=== PATIENT | female | born 1990 | race Asian ===

== ENCOUNTER 2019-12-04 12:14 | Emergency (ER) | payer SELFPAY ==
[~2019-12-04] VITALS: Ht 165.1 cm; Wt 63.5 kg
--- NOTE | 2019-12-04 12:14 | NUR ---
ED Nurse Note: Ptgot triaged at 1206, provided a sitter for safety.
--- NOTE | 2019-12-04 12:14 | NUR ---
ED Nurse Note: patient placed in room 7, DR Duarte at bedside, as well as [employer].
[2019-12-04] MEDS ORDERED: Tetanus/Diptheria/Pertussis IM ONE ×2 (12:15→12:52)
--- NOTE | 2019-12-04 12:15 | NUR ---
ED Nurse Note: patient changed into a hospital gown, all of her belongings placed in a locker beneath the sink in utility room. 1 scissor and 1 knife was given to the security.
--- NOTE | 2019-12-04 12:16 | NUR ---
HAND-OFF: Report given to Krupa HANEY. endorsed all plan of care to Krupa HANEY.
--- NOTE | 2019-12-04 12:27 | Emergency Room Report ---
History of Present Illness General Chief Complaint: Behavioral Complaint Source: EMS (Sadiq Duarte MD) Present Illness HPI Disclaimer: Please note that this report is being documented using DRAGON technology. This can lead to erroneous entry secondary to incorrect interpretation by the dictating instrument. HPI: 29-year-old female with unknown medical history presents by EMS with [employer] on a 5150 hold for suicidal behavior. Patient was brought in from the streets. She was found covered in blood behaving erratically. Reportedly she had pieces of glass that she was trying to use to cut her wrists. The patient is not providing any history at this time. She is withdrawn and only stating that "need to get out of here." She is pulling out her hair while I speak with her. Unknown past medical history or current medications. PMH: Unknown PSH: Unknown Allergies: Unknown Social Hx: Unknown (Sadiq Duarte MD) Allergies: Coded Allergies: No Known Allergies (Unverified , 12/04/19) Patient History Now: No (Sadiq Duarte MD) Nursing Documentation-PMH Past Medical History: No History, Except For History Of Psychiatric Problem: Yes (Sadiq Duarte MD) Review of Systems All Other Systems: limited - Unable to obtain from patient (Sadiq Duarte MD) Physical Exam Vital Signs Date Time Temp Pulse Resp B/P (MAP) Pulse Ox O2 Delivery O2 Flow Rate FiO2 12/04/19 12:06 110 17 142/42 (75) 97 General: Awake, emotional, tearful HEENT: Normocephalic. 1 cm linear superficial laceration just involving the dermis over the left upper forehead. Hemostatic. EOMI. PERRLA. Moist mucous membranes. Cardiovascular: Tachycardic. S1 and S2 normal. No murmur appreciated Resp: Normal work of breathing. No cough, wheezing or crackles appreciated Abdomen: Abdomen is soft, nondistended. Nontender Skin: 1 cm linear superficial laceration just involving the dermis over the left upper forehead. Hemostatic. 2 cm superficial laceration extending through the dermis over the right wrist. Hemostatic. No debris. Multiple abrasions across the forehead, extremities appear to be scratch jacobs MSK: Normal tone and bulk. Moving all extremities. No obvious deformity. Neuro: Awake, agitated, combative with staff. Restrained to rney. (Sadiq Duarte MD) Procedures Laceration/Wound Repair Laceration/Wound Repair : Consent: Emergent Wound Location: face - 1 cm, upper extremity - 2 cm right wrist Wound's Depth, Shape: superficial, linear Wound Explored: clean Wound Debrided: None Suture Size/Type: 4:0, proline Number of Sutures: 3 Sterile Dressing Applied?: Yes Patient Tolerated: Well Complications: None (Sadiq Duarte MD) Medical Decision Making Restraint Reassesment I, Sadiq Duarte MD, have personally evaluated this patient. Laboratory tests have been reviewed and addressed accordingly. The patient is deemed to present a danger to themselves and/or others. This is based on the exam, history ( provided by patient, EMS/[employer] and/or family) and observed or reported behavior. Attempts for non-invasive measures have been considered and/or attempted, however, have been futile. It is in the best interest of the nursing staff, the patient, and others involved in this patient's care that behavioral restraints be applied. Patient evaluation reveals the following: Delirium, combativeness, danger to staff (Sadiq Duarte MD) Diagnostic Impression: Primary Impression: Suicidal behavior Additional Impressions: Face lacerations Multiple lacerations ER Course 21-year-old female presents for suicidal ideation. She has been placed on 5150 hold by [employer]. We will start broad labs including toxicologic studies. Will require sedation as the patient is agitated and not allowing for physical exam. Will explore wounds and treat as needed. Tetanus will be updated. Laboratory Tests Test 12/04/19 12:25 12/04/19 15:00 White Blood Count 11.8 K/UL (4.8-10.8) H Red Blood Count 4.78 M/UL (4.20-5.40) Hemoglobin 14.7 G/DL (12.0-16.0) Hematocrit 42.0 % (37.0-47.0) Mean Corpuscular Volume 88 FL (80-99) Mean Corpuscular Hemoglobin 30.6 PG (27.0-31.0) Mean Corpuscular Hemoglobin Concent 34.9 G/DL (32.0-36.0) Red Cell Distribution Width 11.9 % (11.6-14.8) Platelet Count 244 K/UL (150-450) Mean Platelet Volume 7.4 FL (6.5-10.1) Neutrophils (%) (Auto) 79.2 % (45.0-75.0) H Lymphocytes (%) (Auto) 14.0 % (20.0-45.0) L Monocytes (%) (Auto) 5.8 % (1.0-10.0) Eosinophils (%) (Auto) 0.1 % (0.0-3.0) Basophils (%) (Auto) 0.9 % (0.0-2.0) Sodium Level 143 MMOL/L (136-145) Potassium Level 4.0 MMOL/L (3.5-5.1) Chloride Level 105 MMOL/L (98-107) Carbon Dioxide Level 25 MMOL/L (21-32) Anion Gap 13 mmol/L (5-15) Blood Urea Nitrogen 16 mg/dL (7-18) Creatinine 0.8 MG/DL (0.55-1.30) Estimate Glomerular Filtration Rate > 60 mL/min (>60) Glucose Level 122 MG/DL (74-106) H Calcium Level 9.6 MG/DL (8.5-10.1) Total Bilirubin 0.6 MG/DL (0.2-1.0) Aspartate Amino Transferase (AST) 18 U/L (15-37) Alanine Aminotransferase (ALT) 24 U/L (12-78) Alkaline Phosphatase 73 U/L (46-116) Total Protein 8.8 G/DL (6.4-8.2) H Albumin 4.7 G/DL (3.4-5.0) Globulin 4.1 g/dL Albumin/Globulin Ratio 1.1 (1.0-2.7) Salicylates Level 0.4 ug/mL (2.8-20) L Acetaminophen Level < 2 MCG/ML (10-30) L Serum Alcohol < 3 mg/dL Urine Color Yellow Urine Appearance Clear Urine pH 6.5 (4.5-8.0) Urine Specific [place] 1.020 (1.005-1.035) Urine Protein Negative (NEGATIVE) Urine Glucose (UA) Negative (NEGATIVE) Urine Ketones Negative (NEGATIVE) Urine Blood Negative (NEGATIVE) Urine Nitrite Negative (NEGATIVE) Urine Bilirubin Negative (NEGATIVE) Urine Urobilinogen Normal MG/DL (0.0-1.0) Urine Leukocyte Esterase Negative (NEGATIVE) Urine HCG, Qualitative Negative (NEGATIVE) Urine Opiates Screen Negative (NEGATIVE) Urine Barbiturates Screen Negative (NEGATIVE) Phencyclidine (PCP) Screen Negative (NEGATIVE) Urine Amphetamines Screen Negative (NEGATIVE) Urine Benzodiazepines Screen Negative (NEGATIVE) Urine Cocaine Screen Negative (NEGATIVE) Urine Marijuana (THC) Screen Negative (NEGATIVE) (Sadiq Duarte MD) ER Course Please note that the patient was seen by Dr. Hernandes during my shift at approximately 430 this evening it was recommended for IM Haldol And prescription for the patient And patient was cleared further through psychiatric services. I did speak to the family who are at bedside and everyone feels comfortable going home with close outpatient follow-up and patient will return with any changes or concerns (Marcio Wright DO) Reevaluation Time: 13:43 Last Vital Signs Date Time Temp Pulse Resp B/P (MAP) Pulse Ox O2 Delivery O2 Flow Rate FiO2 12/04/19 12:06 110 17 142/42 (75) 97 Reevaluation Impression Wounds were washed and irrigated. The laceration over the left forehead was approximated with Dermabond. The superficial laceration to the right wrist was closed with 3 simple interrupted 4-0 Prolene sutures. Tetanus was updated. Patient received Haldol and Ativan for sedation and is now sleeping comfortably. Labs thus far have returned within normal limits. Urinalysis is pending. 0653: Patient is been in the emergency department approximately 18.5 hours. Labs are returned within normal limits. She has been calm and cooperative according to overnight reports.She is awaiting placement for psychiatric evaluation. She remains on 5150 legal status. (Sadiq Duarte MD) Disposition: XFER SHT-TRM HOSP Condition: Stable Scripts Risperidone* (RISPERDAL*) 2 Mg Tablet 2 MG ORAL QHS, #15 TAB 0 Refills Prov: Marcio Wright DO 12/05/19 Sadiq Duarte MD Dec 04, 2019 12:27 Marcio Wright DO Dec 05, 2019 17:30
[2019-12-04] MEDS ORDERED: LORazepam Inj 2mg/ml 1ml IM ONE (12:45)
[2019-12-04] MEDS ORDERED: Haloperidol 5mg/ml Inj IM ONE (12:45)
[2019-12-04 12:55] LABS: ANION GAP 13 mmol/L (5-15); BLOOD UREA NITROGEN 16 mg/dL (7-18); CALCIUM 9.6 MG/DL (8.5-10.1); CARBON DIOXIDE 25 MMOL/L (21-32); CHLORIDE 105 MMOL/L (98-107); CREATININE 0.8 MG/DL (0.55-1.30); SODIUM 143 MMOL/L (136-145)
[2019-12-04 12:57] VITALS: BP 138/58
[2019-12-04 13:04] LABS: ALANINE AMINOTRANSFERASE 24 U/L (12-78); ALBUMIN 4.7 G/DL (3.4-5.0); ALBUMIN/GLOBULIN RATIO 1.1 (1.0-2.7); ALKALINE PHOSPHATASE 73 U/L (46-116); ASPARTATE AMINO TRANSFERASE 18 U/L (15-37); BILIRUBIN,TOTAL 0.6 MG/DL (0.2-1.0)
--- NOTE | 2019-12-04 13:04 | NUR ---
ED Nurse Note: Patient appears to be sleeping, eyes closed at this time. Laceration on left forehead and multiple laceration on right wrist noted. ERMD at bedside, aware. Patient was placed on cont. quality assurance monitor chassis showing NSR with HR of 77. Patient saturating 98 on room air. No s/s of pain/discomfort/anxiety at this time. Will continue to monitor.
[2019-12-04 13:07] LABS: BASOPHILS % (AUTO) 0.9 % (0.0-2.0); EOSINOPHILS % (AUTO) 0.1 % (0.0-3.0); HEMOGLOBIN 14.7 G/DL (12.0-16.0); MEAN CORPUSCULAR VOLUME 88 FL (80-99); MONOCYTES % (AUTO) 5.8 % (1.0-10.0); NEUTROPHILS % (AUTO) 79.2 % (45.0-75.0); PLATELET COUNT 244 K/UL (150-450); RED BLOOD COUNT 4.78 M/UL (4.20-5.40); RED CELL DISTRIBUTION WIDTH 11.9 % (11.6-14.8); WHITE BLOOD COUNT 11.8 K/UL (4.8-10.8)
[2019-12-04 14:34] VITALS: BP 97/55
--- NOTE | 2019-12-04 15:27 | NUR ---
ED Nurse Note: urine sample sent to lab.
--- NOTE | 2019-12-04 15:30 | NUR ---
ED Nurse Note: Pt is awake and lying in bed. Pt is calm, relaxed. safety precautions in measure.
[2019-12-04 15:42] LABS: APPEARANCE,URINE CLEAR; BILIRUBIN, URINE NEGATIVE (NEGATIVE); GLUCOSE, URINE (UA) NEGATIVE (NEGATIVE); KETONES,URINE NEGATIVE (NEGATIVE); LEUKOCYTE ESTERASE ,URINE NEGATIVE (NEGATIVE); NITRITE,URINE NEGATIVE (NEGATIVE); PH,URINE 6.5 (4.5-8.0); PROTEIN,URINE NEGATIVE (NEGATIVE); UROBILINOGEN,URINE NORMAL MG/DL (0.0-1.0)
[2019-12-04 15:47] LABS: COLOR,URINE YELLOW
--- NOTE | 2019-12-04 16:30 | NUR ---
ED Nurse Note: Pt is sleeping in bed. Pt is calm and cooperative. Safety measures in place.
--- NOTE | 2019-12-04 17:30 | NUR ---
ED Nurse Note: Family present at bedside. Pt is alert and orientedx4, pt is calm and cooperative.
--- NOTE | 2019-12-04 18:30 | NUR ---
ED Nurse Note: Pt is awake in bed tallking to family. Safety measures in place. Pt is calm.
[2019-12-04 19:04] VITALS: BP 106/57
--- NOTE | 2019-12-04 19:13 | NUR ---
ED Nurse Note: received report from Chanda HANEY. pt nad, calm and resting. family at bedside
--- NOTE | 2019-12-04 19:15 | NUR ---
ED Nurse Note: SITTER BY BEDSIDE
--- NOTE | 2019-12-04 20:22 | NUR ---
ED Nurse Note: PT IS CALM AND SLEEPING. SITTER AT BEDSIDE, FAMILY AT BEDSIDE
[2019-12-04 21:12] VITALS: BP 111/58
--- NOTE | 2019-12-04 21:13 | NUR ---
ED Nurse Note: pt is calm and sleeping. family left bedside. sitter at bedside.
[2019-12-04 23:12] VITALS: BP 109/63
--- NOTE | 2019-12-04 23:12 | NUR ---
ED Nurse Note: PT IS CALM AND SLEEPING. VSS, NAD. SITTER AT BEDSIDE
[2019-12-05 01:15] VITALS: BP 103/71
--- NOTE | 2019-12-05 01:15 | NUR ---
ED Nurse Note:. pt is calm and sleeping. vss, nad, sitter at bedside
[2019-12-05 03:15] VITALS: BP 112/68
--- NOTE | 2019-12-05 03:15 | NUR ---
ED Nurse Note: PT IS CALM AND SLEEPING. VSS, NAD. SITTER AT BEDSIDE.
[2019-12-05 05:38] VITALS: BP 109/66
--- NOTE | 2019-12-05 05:39 | NUR ---
ED Nurse Note: pt calm and sleeping. vss, nad. sitter at bedside
--- NOTE | 2019-12-05 07:03 | NUR ---
ED Nurse Note: gave report to June Gamez
--- NOTE | 2019-12-05 07:52 | NUR ---
ED Nurse Note:pt. is sleeping ,sitter is present, continue observation
--- NOTE | 2019-12-05 10:00 | NUR ---
ED Nurse Note:pt's parent in the room, no SI/HI at this time, pt is compliant
[2019-12-05 12:18] VITALS: BP 113/64
--- NOTE | 2019-12-05 12:20 | NUR ---
ED Nurse Note:pt. got meals, waiting for phsyciatrist
[2019-12-05] MEDS ORDERED: Haloperidol Decanoate (Long Acting) 50mg Inj IM ONE (16:45)
[2019-12-05 17:07] VITALS: BP 119/67
--- NOTE | 2019-12-05 17:08 | NUR ---
ED Nurse Note:pt. was evaluated by dr. Hernandes and 51/50 hold lifted, pt. received IM med per MD order
[2019-12-05] MEDS ORDERED: RISPERDAL2 MG ORAL (17:27)
[2019-12-05 17:30] VITALS: BP 119/67
--- NOTE | 2019-12-05 17:30 | NUR ---
ER DISCHARGE NOTE: Patient is cleared to be discharged per ERMD, pt is aox4, on room air, with stable vital signs. pt was given dc and prescription instructions, pt was able to verbalize understanding, pt id band and iv site removed without complications. pt is able to ambulate with steady gait. pt took all personal belongings.
--- NOTE | 2019-12-05 21:15 | Consultation ---
DATE OF CONSULTATION: 12/05/2019 CONSULTING PHYSICIAN: Cody Hernandes M.D. HISTORY OF PRESENT ILLNESS: This is a 29-year-old Urdu female with a history of multiple medical issues who has been admitted to the hospital after she started cutting herself. The patient is having auditory hallucinations, scratching the floors, punching the quesada, and cutting herself superficially with a knife. She has been in the ER for the past 48 hours. The patient is doing well. She has been admitted for medication. She stated that having any suicidal or homicidal ideation. The patient's mother is at bedside. She would like to take the patient home. The patient is currently on 5150. She is not an imminent danger to self or others. The patient is compliant. No aggressive behavior. PAST PSYCHIATRIC HISTORY: Schizophrenia. She has a psychiatrist that she stopped seeing due to lack of health insurance. The patient has been taking antipsychotics in the past. PAST MEDICAL HISTORY: Nonsignificant. ALLERGIES: No known drug allergies. SUBSTANCE USE HISTORY: Denies any illicit drug use or alcohol. Urine toxicology is negative. MENTAL STATUS EXAMINATION: The patient is alert, oriented times self, place, situation, and date. The patient is calm and cooperative, pleasant. Mood is dysphoric. Affect is full range, congruent with mood. Thought process is linear and goal oriented. Thought content, no suicidal or homicidal ideation. Positive for auditory hallucination. Cognition is intact. Insight and judgment are fair. ASSESSMENT: [place] I Schizophrenia. [place] II Deferred. [place] III Superficial cuts on her wrists and forehead. [place] IV Low. [place] V 50. PLAN: 1. The patient will be started on risperidone 2 mg at bedtime. 2. Haldol Decanoate 50 mg IM monthly. 3. We will discontinue the 5150 as the patient is not an imminent danger to self or others. 4. The patient will be discharged with mother. Cody Hernandes M.D. DR: ROMEO JOB#: [id number] CC: KATY
== END 2019-12-05 17:30 | disposition home or self-care (01) ==
LOC: EDBD 12:14 → EMR 12:59
DX: S61.511A Laceration without foreign body of right wrist, initial encounter (principal); S01.81XA Laceration without foreign body of other part of head, initial encounter; X78.0XXA Intentional self-harm by sharp glass, initial encounter; Y93.9 Activity, unspecified; Y92.9 Unspecified place or not applicable
CPT/HCPCS: 12001; 12011; 36415; 80053; 80307; 81003; 81025; 85025; 90471; 90715; 96372; 99285; G0480; J1630; J1631